=== PATIENT | female | born 1985 | race Caucasian/White ===

== ENCOUNTER 2016-07-12 13:34 | Outpatient (CLI) | payer SELFPAY ==
[~2016-07-12] VITALS: Ht 170.2 cm; Wt 78.6 kg
[2016-07-12 13:49] VITALS: BP 108/57
[2016-07-12 15:15] LABS: DAU SCREEN DISCLAIMER
[2016-07-12] MEDS ORDERED: PREN1TAB60 PO (15:47)
[2016-07-12 16:30] LABS: HIV 1&2 ANTIBODY SCREEN Nonreactive (Nonreactive); HIV-1 p24 ANTIGEN Nonreactive (Nonreactive)
== END 2016-07-12 15:06 | disposition home or self-care (01) ==
LOC: LDOP 13:34
PROVIDERS: ATTEND Obstetrics & Gynecology
DX: O26.893 Other specified pregnancy related conditions, third trimester (principal); R10.9 Unspecified abdominal pain; R06.02 Shortness of breath; R11.0 Nausea; O9A.313 Physical abuse complicating pregnancy, third trimester; F14.10 Cocaine abuse, uncomplicated; Z3A.36 36 weeks gestation of pregnancy
CPT/HCPCS: 36415; 80307; 81001; 85027; 86592; 86703; 86762; 86850; 86900; 87086; 87340; 87899; G0435

== ENCOUNTER 2016-07-24 00:47 | Inpatient (IN) | payer MEDICAID ==
[~2016-07-24] VITALS: Ht 167.6 cm; Wt 85.7 kg
[~2016-07-24 00:47] MED LIST: PREN1TAB60 PO
[2016-07-24] MEDS ORDERED: OXYTOCIN 30U/ 0.9% NaCL 500ML 500 ML ONE ×3 (00:54→06:47)
[2016-07-24] MEDS ORDERED: LIDOCAINE 1%, 20ML ONE (00:55)
[2016-07-24] MEDS ORDERED: MISOPROSTOL 200 MCG TABLET ONE (00:55)
[2016-07-24] MEDS ORDERED: OXYTOCIN 30U/ 0.9% NaCL 500ML 500 ML IV ONE (01:02)
[2016-07-24] MEDS ORDERED: NEWBORN KIT ONE (01:08)
[2016-07-24] MEDS: LACTATED RINGERS 1,000 ML IV SCH ×2 (01:21→09:02)
[2016-07-24] MEDS ORDERED: FENTANYL PF 100 MCG/2ML ONE (01:23)
[2016-07-24] MEDS ORDERED: TERBUTALINE 1 MG/ML, 1ML IVPush PRN (01:30)
[2016-07-24] MEDS ORDERED: METOCLOPRAMIDE 5 MG/ML, 2ML IVPush PRN (01:30)
[2016-07-24] MEDS ORDERED: PENICILLIN GK 5,000,000 UNITS in DEXTROSE 5% 100 ML IVPB ONE (01:30)
[2016-07-24] MEDS ORDERED: ALUMINUM/MAG/SIMETHICONE 30 ML UDC PO PRN (01:30)
[2016-07-24] MEDS ORDERED: SODIUM CITRATE/CITRIC ACID 30 ML UDC PO PRN (01:30)
[2016-07-24] MEDS ORDERED: FENTANYL PF 100 MCG/2ML IV PRN (01:30)
[2016-07-24] MEDS ORDERED: CALCIUM CARBONATE 500 MG TAB.CHEW PO PRN ×2 (01:30→07:00)
[2016-07-24] MEDS: PENICILLIN GK 2,500,000 UNITS in DEXTROSE 5% 100 ML IVPB SCH ×2 (01:30→05:30)
[2016-07-24] MEDS ORDERED: FENTANYL PF 100 MCG/2ML IVPush PRN (01:30)
[2016-07-24] MEDS ORDERED: ONDANSETRON 2MG/ML, 2ML IVPush PRN (01:30)
[2016-07-24] MEDS ORDERED: TERBUTALINE 1 MG/ML, 1ML ONE (01:46)
[2016-07-24] MEDS ORDERED: FENTANYL PF 250 MCG/5ML ONE (01:51)
[2016-07-24] MEDS ORDERED: BUPIVACAINE 0.25% ONE (01:58)
[2016-07-24] MEDS ORDERED: FENTANYL/BUPIV./NS/PF 250 ML EPIDCONT ONE (01:58)
[2016-07-24 02:47] LABS: DAU SCREEN DISCLAIMER
[2016-07-24] MEDS: D5%-LACTATED RINGERS 1,000 ML IV SCH ×2 (02:47→09:02)
[2016-07-24 02:54] LABS: PATH.CAST-FLAG NOT PRESENT; SPERM-FLAG NOT PRESENT; SRC-FLAG NOT PRESENT; XTAL-FLAG NOT PRESENT; YLC-FLAG NOT PRESENT
[2016-07-24] MEDS ORDERED: OXYTOCIN 30U/ 0.9% NaCL 500ML 500 ML IV SCH (06:44)
[2016-07-24] MEDS ORDERED: HYDROcodone/APAP 5/325 TABLET PO PRN ×2 (07:00)
[2016-07-24] MEDS ORDERED: ONDANSETRON 2MG/ML, 2ML IV PRN (07:00)
[2016-07-24] MEDS ORDERED: DIPH,PERTUSS(ACELL),TET VAC/PF NC IM-VACC PRN (07:00)
[2016-07-24] MEDS ORDERED: MISOPROSTOL 200 MCG TABLET PR PRN (07:00)
[2016-07-24 08:45] VITALS: BP 100/65
[2016-07-24] MEDS: PRENATAL VIT/IRON/FA 1 EACH TABLET PO SCH (09:00)
[2016-07-24 12:00] VITALS: BP 110/76
[2016-07-24 16:00] VITALS: BP 100/56
[2016-07-24 19:30] VITALS: BP 96/53
[2016-07-24] MEDS: DOCUSATE 100 MG CAPSULE PO PRN (23:29)
[2016-07-24] MEDS: IBUPROFEN 600 MG TABLET PO PRN (23:29)
[2016-07-24 23:31] VITALS: BP 102/63
[2016-07-25 04:00] VITALS: BP 98/61
[2016-07-25 08:00] VITALS: BP 80/41
[2016-07-25] MEDS: DOCUSATE 100 MG CAPSULE PO PRN ×2 (09:01→20:20)
[2016-07-25] MEDS: PRENATAL VIT/IRON/FA 1 EACH TABLET PO SCH (09:01)
[2016-07-25] MEDS: IBUPROFEN 600 MG TABLET PO PRN ×2 (09:01→20:20)
[2016-07-25 20:23] VITALS: BP 119/69
[2016-07-26 07:58] VITALS: BP 112/68
[2016-07-26] MEDS: PRENATAL VIT/IRON/FA 1 EACH TABLET PO SCH (09:00)
[2016-07-26] MEDS ORDERED: IBUP-1222 PO (11:15)
[2016-07-26] MEDS ORDERED: HYDR-883 PO (11:16)
== END 2016-07-26 14:55 | disposition home or self-care (01) | DRG 775 ==
LOC: LDOP 00:47 → EDIP 00:54 → UNDOADMIN 00:54 → LDIP 00:54 → 2NW 08:45
PROVIDERS: ADMIT Obstetrics & Gynecology; ATTEND Obstetrics & Gynecology
PROC: 10E0XZZ Delivery of Products of Conception, External Approach (ICD-10-PCS; principal; 2016-07-24)
PROC: 00HU33Z Insertion of Infusion Device into Spinal Canal, Percutaneous Approach (ICD-10-PCS; 2016-07-24)
PROC: 3E0R3CZ (ICD-10-PCS; 2016-07-24)
PROC: 10907ZC Drainage of Amniotic Fluid, Therapeutic from Products of Conception, Via Natural or Artificial Opening (ICD-10-PCS; 2016-07-24)
DX: O76 Abnormality in fetal heart rate and rhythm complicating labor and delivery (principal); O99.334 Smoking (tobacco) complicating childbirth; F17.210 Nicotine dependence, cigarettes, uncomplicated; O71.82 Other specified trauma to perineum and vulva; Z3A.37 37 weeks gestation of pregnancy; Z37.0 Single live birth; Z87.59 Personal history of other complications of pregnancy, childbirth and the puerperium
CPT/HCPCS: 36415; 80307; 81001; 85025; 86850; 86900; 87086; J2540; J3010; J3105; J7120; J7121

== ENCOUNTER 2016-08-14 12:28 | Emergency (ER) | payer MEDICAID ==
[~2016-08-14] VITALS: Ht 167.6 cm; Wt 70.0 kg
[~2016-08-14 12:28] MED LIST changes: +HYDR-883 PO; +IBUP-1222 PO
[2016-08-14 12:31] VITALS: BP 120/70
== END 2016-08-14 13:23 | disposition home or self-care (01) ==
LOC: ED 13:17
DX: B85.0 Pediculosis due to Pediculus humanus capitis (principal)
CPT/HCPCS: 99283

== ENCOUNTER 2016-08-16 17:02 | Emergency (ER) | payer MEDICAID ==
[~2016-08-16] VITALS: Ht 167.6 cm; Wt 69.3 kg
[2016-08-16 17:11] VITALS: BP 120/80
[2016-08-16] MEDS ORDERED: LORazepam 1MG TABLET ONE (17:47)
[2016-08-16] MEDS ORDERED: LORazepam 1MG TABLET PO ONE (18:00)
[2016-08-16 18:05] LABS: ASPARTATE AMINO TRANSFERASE 17 U/L (15-37); BLOOD UREA NITROGEN 13 mg/dL (7-18)
[2016-08-16 18:12] LABS: ACETAMINOPHEN < 2 mcg/mL (10-30)
== END 2016-08-16 18:37 | disposition home or self-care (01) ==
LOC: ED 18:31
DX: S00.01XA Abrasion of scalp, initial encounter (principal); S00.81XA Abrasion of other part of head, initial encounter; Z00.00 Encounter for general adult medical examination without abnormal findings; X58.XXXA Exposure to other specified factors, initial encounter; Y93.89 Activity, other specified; Y99.8 Other external cause status; Y92.89 Other specified places as the place of occurrence of the external cause
CPT/HCPCS: 36415; 80053; 80307; 80329; 85025; 99284; G0480

== ENCOUNTER 2017-01-04 18:17 | Emergency (ER) | payer MEDICAID ==
[~2017-01-04] VITALS: Ht 167.6 cm; Wt 69.8 kg
[2017-01-04 18:18] VITALS: BP 110/72
[2017-01-04 19:24] LABS: HEMATOCRIT 39.1 % (34.6-47.8); HEMOGLOBIN 12.9 g/dL (11.7-16.4); WHITE BLOOD COUNT 6.7 x10^3/uL (3.4-10)
[2017-01-04 19:34] LABS: ASPARTATE AMINO TRANSFERASE 10 U/L (15-37); BLOOD UREA NITROGEN 18 mg/dL (7-18)
[2017-01-04] MEDS ORDERED: FAMOTIDINE 20 MG TABLET ONE (20:48)
[2017-01-04] MEDS ORDERED: FAMOTIDINE 20 MG TABLET PO ONE (21:00)
== END 2017-01-04 20:57 | disposition home or self-care (01) ==
LOC: ED 18:44
DX: B35.0 Tinea barbae and tinea capitis (principal); L65.9 Nonscarring hair loss, unspecified; F17.210 Nicotine dependence, cigarettes, uncomplicated
CPT/HCPCS: 36415; 80053; 84439; 84443; 85025; 99284; J7512; Q0177

== ENCOUNTER 2017-08-29 04:00 | Emergency (ER) | payer MEDICAID ==
[~2017-08-29] VITALS: Ht 170.2 cm; Wt 67.0 kg
[2017-08-29 04:01] VITALS: BP 107/69
[2017-08-29] MEDS ORDERED: HYDROcodone/APAP 5/325 TABLET PO ONE (04:30)
[2017-08-29] MEDS ORDERED: HYDROcodone/APAP 5/325 TABLET ONE (04:32)
== END 2017-08-29 04:40 | disposition home or self-care (01) ==
LOC: ED 04:35
DX: S09.8XXA Other specified injuries of head, initial encounter (principal); K02.9 Dental caries, unspecified; Z88.2 Allergy status to sulfonamides; X58.XXXA Exposure to other specified factors, initial encounter; Y93.89 Activity, other specified; Y92.89 Other specified places as the place of occurrence of the external cause; Y99.8 Other external cause status
CPT/HCPCS: 99283

== ENCOUNTER 2017-11-25 11:36 | Emergency (ER) | payer MEDICAID ==
[~2017-11-25] VITALS: Ht 167.6 cm; Wt 64.7 kg
[2017-11-25 11:43] VITALS: BP 114/80
== END 2017-11-25 12:11 | disposition home or self-care (01) ==
LOC: ED 11:51
DX: K02.9 Dental caries, unspecified (principal); H60.503 Unspecified acute noninfective otitis externa, bilateral; B35.4 Tinea corporis
CPT/HCPCS: 99283

== ENCOUNTER 2017-12-18 09:28 | Emergency (ER) | payer MEDICAID ==
[~2017-12-18] VITALS: Ht 167.6 cm; Wt 63.4 kg
[~2017-12-18 09:28] MED LIST changes: +HYDR-3652 PO; -HYDR-883 PO
[2017-12-18] MEDS ORDERED: ONDANSETRON 2MG/ML, 2ML IVPush ONE (10:00)
[2017-12-18] MEDS ORDERED: SODIUM CHLORIDE 0.9% 1,000ML IVBOLUS ONE (10:00)
[2017-12-18] MEDS ORDERED: ONDANSETRON 2MG/ML, 2ML ONE (10:08)
[2017-12-18] MEDS ORDERED: MORPHINE SULFATE 4 MG/ML, 1ML ONE ×2 (10:08→11:08)
[2017-12-18] MEDS: MORPHINE SULFATE 4 MG/ML, 1ML IVPush PRN ×2 (10:12→11:10)
[2017-12-18 10:44] LABS: BASOPHILS % (AUTO) 0 % (0-1); EOSINOPHILS % (AUTO) 0 % (1-7); LYMPHOCYTES % (AUTO) 8 % (22-44); MD NO; MEAN CORPUSCULAR HEMOGLOBIN 30.2 pg (27.0-34.8); MEAN CORPUSCULAR HGB CONC 33.4 g/dL (32.4-35.8); MEAN CORPUSCULAR VOLUME 90.2 fL (80-100); MEAN PLATELET VOLUME 8.1 fL (7.4-10.4); MONOCYTES # (AUTO) 1.28 x10^3/uL (0.2-0.8); MONOCYTES % (AUTO) 10 % (2-9); NEUTROPHILS # (AUTO) 10.78 x10^3/uL (1.8-6.8); NEUTROPHILS % (AUTO) 82 % (42-75); PLATELET COUNT 334 x10^3/uL (130-400); RED CELL DISTRIBUTION WIDTH 12.4 % (9.6-15.2)
[2017-12-18 10:58] LABS: ANION GAP 6 mmol/L (5-15); CALCIUM 8.5 mg/dL (8.5-10.1); CHLORIDE 105 mmol/L (98-107)
[2017-12-18 11:04] LABS: ALANINE AMINOTRANSFERASE 76 U/L (12-78); ALKALINE PHOSPHATASE 67 U/L (45-117); BILIRUBIN,TOTAL 0.3 mg/dL (0.2-1.0); CREATININE 0.64 mg/dL (0.55-1.02); TOTAL PROTEIN 7.3 g/dL (6.4-8.2)
[2017-12-18 11:08] LABS: CULTURE INDICATED? YES; MICROSCOPIC INDICATED
[2017-12-18] MEDS ORDERED: CEFTRIAXONE PMX 1GM/50ML 50 ML ONE (11:12)
[2017-12-18] MEDS ORDERED: CEFTRIAXONE PMX 1GM/50ML 50 ML IV ONE (11:30)
[2017-12-18 12:05] VITALS: BP 104/65
[2017-12-18] MEDS ORDERED: KETOROLAC 30 MG/1 ML ONE (12:29)
[2017-12-18] MEDS ORDERED: KETOROLAC 60 MG/2 ML IVPush ONE (12:30)
== END 2017-12-18 12:53 | disposition home or self-care (01) ==
LOC: ED 10:31
DX: N10 Acute pyelonephritis (principal); F17.200 Nicotine dependence, unspecified, uncomplicated
CPT/HCPCS: 36415; 80053; 81001; 83605; 84145; 84703; 85025; 87040; 87077; 87086; 96365; 96375; 99284; J0696; J1885; J2405; J7030; 87186